=== PATIENT | male | born 1980 | race Hispanic/Latino ===

== ENCOUNTER 2024-03-18 08:33 | Emergency (ER) | payer OTHER ==
[~2024-03-18] VITALS: Ht 167.6 cm; Wt 100.0 kg
[~2024-03-18 08:33] MED LIST: ATORVASTATIN CA20 MG PO; BENICAR20 MG PO; CELEBREX200 MG PO; METFORMIN HCL1000 MG; NEURONTIN300 MG PO; OMEPRAZOLE40 MG PO; ONDANSETRON ODT4 MG PO; TRICOR48 MG PO
[2024-03-18] MEDS ORDERED: AMLODIPINE BESY10 MG PO (09:05)
[2024-03-18] MEDS: FAMOTIDINE 20 MG/2 ML VIAL IV STA (10:11)
[2024-03-18] MEDS: KETOROLAC TROMETHAMINE 30 MG/ML VIAL IV STA ×2 (10:12→11:18)
[2024-03-18] MEDS: SODIUM CHLORIDE 0.9% 1000ML 1,000 ML IV SCH (10:12)
[2024-03-18 11:09] VITALS: PULSE 75; RESP 20; TEMP 97.7
[2024-03-18] MEDS: DONNATAL/LIDOCAINE/MAALOX 30 ML SUSP PO ONE (11:18)
[2024-03-18] MEDS ORDERED: PANTOPRAZOLE SO40 MG PO (12:50)
[2024-03-18] MEDS ORDERED: FAMOTIDINE40 MG PO (12:52)
[2024-03-18] MEDS ORDERED: CARAFATE1 GM/10 ML PO (12:54)
[2024-03-18 13:13] VITALS: BP 126/80; PULSE 78; RESP 20; TEMP 97.8; O2SAT 98
== END 2024-03-18 13:14 | disposition home or self-care (01) ==
LOC: VACCPMC 08:38 → FSED 13:14
DX: R10.13 Epigastric pain (principal); K29.70 Gastritis, unspecified, without bleeding; E11.65 Type 2 diabetes mellitus with hyperglycemia; E11.42 Type 2 diabetes mellitus with diabetic polyneuropathy; E78.5 Hyperlipidemia, unspecified; I10 Essential (primary) hypertension; R94.31 Abnormal electrocardiogram [ECG] [EKG]; F17.210 Nicotine dependence, cigarettes, uncomplicated
CPT/HCPCS: 74177; 80048; 80076; 81003; 82553; 84484; 85025; 93005; 96374; 99283

== ENCOUNTER 2024-08-30 10:02 | Emergency (ER) | payer OTHER ==
[~2024-08-30] VITALS: Ht 167.6 cm; Wt 99.8 kg
[~2024-08-30 10:02] MED LIST changes: +AMLODIPINE BESY10 MG PO; +CARAFATE1 GM/10 ML PO; +FAMOTIDINE40 MG PO; +PANTOPRAZOLE SO40 MG PO
[2024-08-30 10:12] VITALS: PULSE 86; RESP 17; TEMP 98.5; O2SAT 97
[2024-08-30] MEDS ORDERED: AZITHROMYCIN250 MG PO (10:37)
== END 2024-08-30 10:58 | disposition home or self-care (01) ==
LOC: FSED 10:07
DX: H66.92 Otitis media, unspecified, left ear (principal); H61.22 Impacted cerumen, left ear; I10 Essential (primary) hypertension; E11.42 Type 2 diabetes mellitus with diabetic polyneuropathy; E78.5 Hyperlipidemia, unspecified
CPT/HCPCS: 99284